=== PATIENT | male | born 1995 | race Caucasian/White ===

== ENCOUNTER → 2019-03-20 | Outpatient (CLI) | payer OTHER ==
--- NOTE | 2019-03-20 13:09 | XR ---
Right shoulder HISTORY: Trauma and pain 3 views of the right shoulder Bone mineralization, joint spaces and alignment are maintained. Right lung apex as visualized is norm al. IMPRESSION: No fracture or dislocation.
--- NOTE | 2019-03-20 13:10 | XR ---
Thoracic spine HISTORY: Strain, pain 4 views of the thoracic spine There is an S-shaped thoracic scoliosis. Thoracic vertebral bodies show preserved height and bone min eralization. Disc spaces are maintained. IMPRESSION: No fracture or subluxation.
== END | disposition home or self-care (01) ==
LOC: RADXRMAIN 12:21
PROVIDERS: ATTEND Emergency Medicine
DX: S16.1XXA Strain of muscle, fascia and tendon at neck level, initial encounter (principal); S29.012A Strain of muscle and tendon of back wall of thorax, initial encounter
CPT/HCPCS: 72072

== ENCOUNTER → 2024-08-28 | Outpatient (CLI) | payer BC ==
[2024-08-28 15:03] VITALS: BP 131/82; PULSE 92; RESP 16; TEMP 98.3
--- NOTE | 2024-08-28 15:58 | P.SLEEP ---
History of Present Illness H&P Date: 08/28/24 This is a 28-year-old male patient who was referred to me from [facility] regarding the possibility of obstructive sleep apnea. 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 He admitted to snore and he was found out to have a body mass index of 37.3 and a neck size of 17-3/4 of an inch. As such, there was a concern for obstructive sleep apnea and the patient was referred to me for further investigation. The patient admits to snore. The patient has occasional arousals in the middle of the night choking and gasping. He wakes up tired during the day and his difficulties with daytime sleepiness. His current [place] score is at 6. Denies falling asleep while driving. He has never been involved in a motor vehicle accident because of feeling drowsy or sleepy. No grinding. No restlessness in lower extremities. He sleeps on his side and sometimes on his back. He is a nose breather. No recent weight gain over the past 1 year. His weight has remained stable. No substance abuse. No alcoholism. No smoking. No naps during the day. No sleep analysis. No hallucinations. No cataplexy. No palpitation or heartburn overnight. No shortness of breath overnight. No nocturia. No night terrors. No hallucinations. He establish himself with a primary care and the patient was found to have a component of depression and was sent to counseling. Review of Systems Constitutional: Reports daytime sleepiness, Reports fatigue Eyes: denies as per HPI, denies blurred vision, denies bulging eye, denies decreased vision, denies diplopia, denies discharge, denies dry eye, denies irritation, denies itching, denies pain, denies photophobia, denies loss of peripheral vision, denies loss of vision, denies tunnel vision/blind spots Ears: deny: decreased hearing, ear discharge, earache, tinnitus Ears, nose, mouth and throat: Reports as per HPI Breasts: absent: as per HPI, gynecomastia Cardiovascular: Reports as per HPI Respiratory: Reports as per HPI Gastrointestinal: Reports as per HPI Genitourinary: Reports as per HPI Musculoskeletal: Reports as per HPI Musculoskeletal: absent: ankle pain, ankle stiffness, ankle swelling, as per HPI, elbow pain, elbow stiffness, elbow swelling, foot pain, foot stiffness, foot swelling, hand pain, hand stiffness, hand swelling, hip pain, hip stiffness, hip swelling, knee pain, knee stiffness, knee swelling, shoulder pain, shoulder stiffness, shoulder swelling, wrist pain, wrist stiffness, wrist swelling Integumentary: Reports as per HPI Neurological: Reports as per HPI Psychiatric: Reports as per HPI Endocrine: Reports as per HPI, Reports fatigue Hematologic/Lymphatic: Reports as per HPI Allergic/Immunologic: Reports as per HPI Past Medical History Past Medical History: No Reported History Additional Past Medical History / Comment(s): Sinus headaches History of Any Multi-Drug Resistant Organisms: None Reported Past Surgical History: Appendectomy Past Psychological History: No Psychological Hx Reported Smoking Status: Never smoker Past Alcohol Use History: Rare Past Drug Use History: None Reported - Past Family History Father Family Medical History: Coronary Artery Disease (CAD), Diabetes Mellitus Additional Family Medical History / Comment(s): Heart problems - stents, diad is diabetic or prediabetic, (borther - autism), (mom - diabetes) Physical Exam Vitals: Vital Signs Temp Pulse Resp BP Pulse Ox 08/28/24 15:02 98.3 F 92 16 131/82 97 Intake and Output 08/28/24 08/28/24 08/28/24 06:59 14:59 22:59 Other: Weight 122.555 kg The patient appeared well nourished and normally developed. Vital signs as documented. The patient has a body mass index of 37.3 Head exam is unremarkable. No scleral icterus or corneal arcus noted. Neck is without jugular venous distension, thyromegaly, or carotid bruits. Carotid upstrokes are brisk bilaterally. Mallampati class IV with significant crowding of posterior pharynx Lungs are clear to auscultation and percussion. Cardiac exam reveals the PMI to be normally sized and situated. Rhythm is regular. First and second heart sounds normal. No murmurs, rubs or gallops. Abdominal exam reveals normal bowel sounds, no masses, no organomegaly and no aortic enlargement. Extremities are nonedematous and both femoral and pedal pulses are normal. Examination of the skin revealed no evidence of significant rashes, suspicious appearing nevi or other concerning lesions. Neurologically, the patient is awake and alert and the patient does not have any focal neurological deficit. Cranial nerves are essentially intact. 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 Sleep Note - Sleep Data ESS Total: 6 - Sleep Note Sleep Note: Temperature: 98.3 F Pulse Rate: 92 Respiratory Rate: 16 Blood Pressure: 131/82 SpO2: 97 Height: 5 ft 11.3 in Weight: 122.555 kg BMI: Neck Circumference: 17.7
== END ==
LOC: 3 N SLEEP 14:11
PROVIDERS: ATTEND Internal Medicine Critical Care Medicine
DX: R06.83 Snoring (principal); E66.9 Obesity, unspecified; Z68.37 Body mass index [BMI] 37.0-37.9, adult; R53.83 Other fatigue
CPT/HCPCS: 99202

== ENCOUNTER → 2024-10-01 | Outpatient (CLI) | payer BC ==
--- NOTE | 2024-10-02 22:01 | P.PCN ---
Date of Procedure: 10/01/24 Operative Findings: Home sleep study testing Date of service 10/01/2024 History This is a 28-year-old male patient who was referred to me from [facility] regarding the possibility of obstructive sleep apnea. 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 He admitted to snore and he was found out to have a body mass index of 37.3 and a neck size of 17-3/4 of an inch. As such, there was a concern for obstructive sleep apnea and the patient was referred to me for further investigation. The patient admits to snore. The patient has occasional arousals in the middle of the night choking and gasping. He wakes up tired during the day and his difficulties with daytime sleepiness. His current [place] score is at 6. Denies falling asleep while driving. He has never been involved in a motor vehicle accident because of feeling drowsy or sleepy. No grinding. No restlessness in lower extremities. He sleeps on his side and sometimes on his back. He is a nose breather. No recent weight gain over the past 1 year. His weight has remained stable. No substance abuse. No alcoholism. No smoking. No naps during the day. No sleep analysis. No hallucinations. No cataplexy. No palpitation or heartburn overnight. No shortness of breath overnight. No nocturia. No night terrors. No hallucinat ions. He establish himself with a primary care and the patient was found to have a component of depression and was sent to counseling. Pertinent physical findings Body mass index is 37.3 Technical description The [email or web address] Apnea[employer] system was used to complete his home sleep study. This is a M sleep study evaluation. The total recording duration was 8 hours and 42 minutes. The study started at 8:05 PM and ended at 4:47 AM. There was a total of 8 hours and 31 minutes of flow monitoring and oxygen saturation monitoring and as such the study was adequate. Results Respiratory evaluation showed a total of 99 obstructive hypopneas and 1 obstructive apnea. The resulting AHI was 11.7 Oxygenation analysis There was a total of 96 episodes of oxygen desaturation. The baseline pulse ox was 96%. Average pulse ox during sleep was 94%. Lowest pulse ox was 86%. The patient spent only 1 minute of the sleep time below pulse ox of 89% Cardiac summary Average heart rate was 79 with a minimum heart rate of 56 and a maximum 122 Assessment Obstructive sleep apnea, mild, AHI of 11.7 No significant nocturnal oxygen desaturation. 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 The patient will be offered an APAP machine pressures of 5/10 cm of water with appropriate mask interface and the patient was seen back in the office in 30 to 90 days to assess clinical response and compliancy. Encourage weight loss Maintain regular sleep schedule Maintain good sleep hygiene measures Patient will need to see a counselor for symptoms of depression Will continue to follow
== END ==
LOC: 3 N SLEEP 13:03
PROVIDERS: ATTEND Internal Medicine Critical Care Medicine
DX: G47.33 Obstructive sleep apnea (adult) (pediatric) (principal); E66.9 Obesity, unspecified; R06.83 Snoring; R53.82 Chronic fatigue, unspecified; Z68.37 Body mass index [BMI] 37.0-37.9, adult

== ENCOUNTER 2024-10-19 12:22 | Emergency (ER) | payer OTHER, BC ==
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
[2024-10-19] MEDS: ACETAMINOPHEN TAB 500 MG TAB PO STA (13:38)
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
[2024-10-19 14:41] VITALS: BP 143/87; PULSE 75; RESP 18; TEMP 98
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
--- NOTE | 2024-10-19 15:04 | XR ---
EXAMINATION TYPE: XR lumbar spine 2 or 3V DATE OF EXAM: 10/19/2024 CLINICAL HISTORY: pain TECHNIQUE: Three views of the lumbar spine are submitted. COMPARISON: Thoracic spine radiographs 03/20/2019. FINDINGS: There are 5 lumbar type vertebral bodies identified. No acute fracture. Vertebral body heights are m aintained. Dextrocurvature of the visualized thoracolumbar spine. Upper lumbar spine endplate scleros is with disc space narrowing and anterior osteophytosis. Anterior tilt of the sacrum identified. The overlying soft tissue appears unremarkable. IMPRESSION: 1. No acute fracture or dislocation is seen in the lumbar spine. 2. Scoliotic changes of the thoracolumbar spine. [facility], , 10/19/2024 3:01 PM
== END 2024-10-19 15:20 | disposition home or self-care (01) ==
LOC: EC 12:22
DX: M54.2 Cervicalgia (principal); V89.2XXA Person injured in unspecified motor-vehicle accident, traffic, initial encounter; W22.09XA Striking against other stationary object, initial encounter
CPT/HCPCS: 70450; 71046; 72100; 72125; 99284

== ENCOUNTER → 2024-10-22 | Outpatient (CLI) | payer OTHER ==
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
== END | disposition home or self-care (01) ==
LOC: RADXRMAIN 17:14
PROVIDERS: ATTEND Emergency Medicine
DX: S63.502A Unspecified sprain of left wrist, initial encounter (principal); S93.401A Sprain of unspecified ligament of right ankle, initial encounter